=== PATIENT | male | born 2000 | race Caucasian/White ===

== ENCOUNTER 2025-03-10 21:48 | Emergency (ER) | payer OTHER, SELFPAY ==
[2025-03-10 21:50] VITALS: BP 158/85; PULSE 135; RESP 18; TEMP 38; O2SAT 100; BMI 42.9
[2025-03-10 21:56] VITALS: BP 158/85; PULSE 135; RESP 18; TEMP 38; O2SAT 100
--- NOTE | 2025-03-10 22:19 | EX.ED.DYSGE1 ---
HPI History of Present Illness Chief Complaint: Cellulitis Informant: patient Onset/Context/Timing Onset: Today Context: Gradual Onset Timing: Continuous Current Severity: Moderate Maximum Severity: Moderate Narrative Narrative: 24-year-old male slid on Tuesday playing [employer]. He did develop a low-grade fever today of 100.4 and redness from his right mid medial calf up to his medial right thigh. No prior history. No history of clots. No history of DVT or PE. No family history of clotting disorder. No recent travel, surgery or immobilization. Never had any surgery to this leg before. Prior similar symptoms: No Recent Illness/Hospitalization: No PFSH PFSH Medical History no medical history no medical history Home Medications ?Medication ?Instructions ?Recorded ?Last Taken ?Type cephalexin 500 mg capsule 500 mg PO Q6 #40 CAPSULES 03/11/25 Unknown Rx sulfamethoxazole 800 1 tab PO BID 10 days #20 tabs 03/11/25 Unknown Rx mg-trimethoprim 160 mg tablet (Bactrim DS) Allergy/AdvReac Type Severity Reaction Status Date / Time No Known Allergies Allergy Verified 03/10/25 21:50 Family History no significant family his Surgical History no surgical history no surgical history Social History Smoking Status: Never smoker ROS ROS ED ROS Narrative Low-grade fever. Redness right medial leg. Constitutional Constitutional ED: Reports fever(s) Eyes Eyes: Denies blurry vision ENT ENT ED: Denies ear pain Cardiovascular Cardiovascular: Denies chest pain Respiratory/Chest Respiratory/Chest: Denies cough or dyspnea Gastrointestinal Gastrointestinal: Denies abdominal pain Genitourinary Genitourinary ED: Denies dysuria or hematuria Musculoskeletal Musculoskeletal: Denies arthralgias Integumentary Reports rash; Denies abscess or Abrasions Neurologic Neurologic: Denies headache(s) Psychiatric Psychiatric: Denies anxiety Hematologic/Lymphatic Hematologic/Lymphatic: Reports none Allergic/Immunologic Allergic/Immunologic ED: Denies mouth swelling, tongue swelling or urticaria EXAM Physical Exam Narrative Exam Narrative: 24-year-old male vital signs temperature 100.4 heart rate 135. Pulse ox 9% on room air no signs hypoxia. No distress. Ehly members present in room. H EENT exam pupils round react to light. Moist mucous membranes. Neck nontender no JVD. No lymphadenopathy. Lungs clear to auscultation bilaterally. Heart tachycardic 120 no murmur. Chest wall ribs nontender. Abdomen soft nontender. Moving all 4 extremities. Normal range of motion. Normal strength. From his medial right lower leg and calf up to his medial mid thigh there is a red streak that is about 4 inches wide and about 3 feet long. He has got no inguinal lymphadenopathy. There is no crepitance. His right foot is neurovascularly intact with normal DP pulse. Normal dorsi plantarflexion. Normal strength and sensation. There is no sloughing of skin. There is no subcu air. Neurologically is awake alert. Answering questions following commands. His calf otherwise is nontender without cords or edema. Const Vital Signs: 03/10/25 21:50 03/10/25 21:56 03/10/25 21:59 Temperature 100.4 F H 100.4 F H Temperature Source Oral Oral Pulse Rate 135 H 135 H Respiratory Rate 18 18 Respiratory Effort Normal Non-Labored Respiratory Pattern Normal Blood Pressure 158/85 H 158/85 H Blood Pressure Mean 109 109 Pulse Ox 100 100 Oxygen Delivery Method Room Air Room Air 03/10/25 23:00 Temperature 102.0 F H Temperature Source Oral Pulse Rate 130 H Respiratory Rate 18 Respiratory Effort Respiratory Pattern Blood Pressure 147/80 H Blood Pressure Mean 102 Pulse Ox 98 Oxygen Delivery Method Room Air MDM MDM MDM Narrative Medical decision making narrative: 24-year-old male on Tuesday developed pain and redness and low-grade fever to his leg today. Consistent with cellulitis. There is no family history for blood clots or does he have any risk factors for blood clots. Screening labs will be obtained and he will be given a dose of IV Unasyn. Repeat exam at around 11:12 PM. The no change in his cellulitis of his leg. Patient still has a heart rate in the 130s. I discussed with him all his test results. My concern with the advancement of the infection and not having a specific cause. They are considering admission at this time. Repeat exam at 11:55 PM. Had a lengthy discussion with the patient I believe it is his mother and significant other at bedside. He prefers not to stay. I explained to them that given the fever and the extent of the cellulitis of his leg my concern is that by going home he has a significant chance of returning and potentially could be much more ill. He has concerns with his insurance and co-pays. He even spoke to our registration people about potential cost. He is choosing to be discharged to home. He will be written for both Keflex and Bactrim which will be filled here prior to discharge. He was given a dose of IV Unasyn. The exam of his leg is not changed. It does not spread. There is no inguinal lymphadenopathy. There is no necrotic tissue nor any subcu air or crepitance. He knows to return immediately if this is looking worse or he is feeling worse. He was given outpatient follow-up. He did not sign out AMA due to insurance concerns. History & Record Review Discussion w/independent historian: Patient and Family Additional record(s) reviewed:: No prior records Lab Data Attestation: I reviewed the patient's lab results. Lab results narrative: CBC shows elevated white count at 18. H&H of 14 and 42. Platelets 244. 81% neutrophils. D-dimer is negative at 0.45. Chemistries unremarkable gap 9. Normal BUN and creatinine of 13 and 1. Glucose 130. Labs: Laboratory Results - last 24 hr 03/10/25 22:20 WBC 18.0 H RBC 5.07 Hgb 14.9 Hct 42.1 MCV 83.0 MCH 29.4 MCHC 35.4 RDW Std Deviation 37.2 RDW Coeff of Liliana 12.3 Plt Count 244 MPV 9.2 Immature Gran % (Auto) 0.500 Neut % (Auto) 81.2 H Lymph % (Auto) 9.2 L [place] % (Auto) 8.3 Eos % (Auto) 0.5 Baso % (Auto) 0.3 Absolute Neuts (auto) 14.6 H Absolute Lymphs (auto) 1.66 Nucleated RBC % 0 D-Dimer Quant (PE/DVT) 0.45 Sodium 137 Potassium 4.0 Chloride 102 Carbon Dioxide 25.9 Anion Gap 9 BUN 13 Creatinine 1.08 Estim Creat Clear Calc 139.46 Est GFR (MDRD) Non-Af 97 BUN/Creatinine Ratio 12.2 Glucose 130 H Calcium 8.8 Discharge Plan Triage Chief Complaint: Cellulitis ED Provider: Erick Pereyra Dx/Rx/DC Orders Clinical Impression: Cellulitis, Fever Instructions: ED Cellulitis Prescriptions: New cephalexin 500 mg capsule 500 mg PO Q6 Qty: 40 0RF sulfamethoxazole-trimethoprim [Bactrim DS] 800-160 mg tablet 1 tab PO BID 10 Days Qty: 20 0RF Rx Instructions: give 3 days/wk (alternating days) Primary Care Provider: Care Physician,No Primary Referrals: Bony Vela MD [Med [facility] - [facility]] - As soon as possible Care Physician,No Primary [Primary Care Provider, Medical] Activity Restrictions/Additional Instructions: You have a soft tissue infection of the right leg. Watch it closely if it starts getting worse, you are feeling worse and is spreading further up in your leg or you develop swollen lymph nodes in your groin or your leg gets a lot more swollen or the skin starts looking black return. You will be on the antibiotic Keflex 1 pill 4 times a day for 10 days. Also the antibiotic Bactrim 1 pill twice a day for 10 days. Follow-up with another local physician to be reevaluated next several days to ensure this is improving. Motrin and Tylenol for pain. Plenty of fluids and rest. Off work next 2 days. Print Language: Sammarinese Disposition Disposition: Home, Self Care
[2025-03-10 22:29] LABS: Hematocrit 42.1 % (40-54); Hemoglobin 14.9 g/dL (13.0-16.5); Immature Granulocytes Count 0.090 X10^3/uL (0.0-0.0); Mean Corp Hgb Conc 35.4 g/dL (32-36); Mean Corpuscular Volume 83.0 fL (80-94); Mean Platelet Vol. 9.2 fl (6.2-12.0); NRBC Flagged by Analyzer 0 % (0-5); Platelet Count 244 K/mm3 (150-450); RBC Distribution Width CV 12.3 % (11.6-14.6); RBC Distribution Width SD 37.2 fl (35.1-43.9); Red Blood Count 5.07 M/mm3 (4.6-6.2); White Blood Count 18.0 K/mm3 (4.4-11.0)
[2025-03-10] MEDS: Ampicillin/Sulbactam 3 GM in 0.9% Normal Saline (100mL MB+) 100 ML IV (22:45)
[2025-03-10 22:48] LABS: D-Dimer Quantitative (DVT/PE) 0.45 FEU/ug/m (0.27-0.49)
[2025-03-10 22:51] LABS: Anion Gap 9 (5-15); BUN 13 mg/dL (4-19); BUN/Creat Ratio 12.2 RATIO (10-20); Calcium,Total 8.8 mg/dL (7.6-11.0); Carbon Dioxide 25.9 mmol/L (21.0-32.0); Chloride 102 mmol/L (98-108); Estimated Creatinine Clearance 139.46 ml/min (50-250); Glucose 130 mg/dL (70-99); Potassium 4.0 mmol/L (3.3-5.1)
[2025-03-10 23:00] VITALS: BP 147/80; PULSE 130; RESP 18; TEMP 38.9; O2SAT 98
[2025-03-11 00:19] VITALS: BP 147/80; PULSE 125; RESP 18; TEMP 38.2; O2SAT 100
== END 2025-03-11 00:20 | disposition home or self-care (01) ==
PROVIDERS: Emergency Provider Emergency Medicine; Visit Provider Emergency Medicine
DX: L03.115 Cellulitis of right lower limb (principal); R50.9 Fever, unspecified
CPT/HCPCS: 80048; 85025; 85379; 96365; 99284; A4216; J0295

== ENCOUNTER 2025-03-12 16:21 | Inpatient (IN) | payer OTHER, SELFPAY ==
[2025-03-12] VITALS (10 sets, daily range): BP systolic 103–135; BP diastolic 60–76; PULSE 88–112; RESP 14–18; TEMP 37.3–37.6; O2SAT 98–100; BMI 41.8
[2025-03-12] MEDS: Ampicillin/Sulbactam 3 GM in 0.9% Normal Saline (100mL MB+) 100 ML IV (17:23)
--- NOTE | 2025-03-12 17:23 | EX.ED.DYSGE1 ---
HPI History of Present Illness Chief Complaint: Cellulitis Informant: patient Onset/Context/Timing Onset: Days (4) Context: Gradual Onset Timing: Continuous Quality: Burning Location: Right lower leg and right medial thigh Worsened by: Standing Relieved by: Nothing Narrative Narrative: Patient presents with redness and swelling to his right lower extremity that has gotten worse over the past 4 days. Patient was seen here 2 days ago and was given a dose of IV antibiotics at that time. Patient was prescribed oral antibiotics. Patient did not want to stay in the hospital at that time. Patient states the redness and swelling has gotten worse. Patient admits to some subjective fevers. Patient describes his pain as burning. Patient states it is worse with standing. Patient states nothing makes it better. Patient denies any paresthesias or weakness. PFSH PFSH Home Medications ?Medication ?Instructions ?Recorded ?Last Taken ?Type cephalexin 500 mg capsule 500 mg PO Q6 #40 CAPSULES 03/11/25 Unknown Rx sulfamethoxazole 800 1 tab PO BID 10 days #20 tabs 03/11/25 Unknown Rx mg-trimethoprim 160 mg tablet (Bactrim DS) Allergy/AdvReac Type Severity Reaction Status Date / Time No Known Allergies Allergy Verified 03/12/25 16:22 Family History no significant family his Social History Smoking Status: Never smoker ROS ROS ED Constitutional Constitutional ED: Reports fever(s); Denies chills Eyes Eyes: Denies blurry vision or change in vision ENT ENT ED: Denies rhinorrhea or sore throat Cardiovascular Cardiovascular: Denies chest pain or palpitations Respiratory/Chest Respiratory/Chest: Denies cough or dyspnea Gastrointestinal Gastrointestinal: Reports nausea and vomiting Genitourinary Genitourinary ED: Denies dysuria or hematuria Musculoskeletal Musculoskeletal: Denies back pain or neck pain Integumentary Reports rash; Denies abscess Neurologic Neurologic: Reports headache(s); Denies weakness Allergic/Immunologic Allergic/Immunologic ED: Denies mouth swelling or urticaria EXAM Physical Exam Const Vital Signs: 03/12/25 16:21 03/12/25 16:24 03/12/25 17:24 Temperature 99.1 F 99.1 F 99.1 F Temperature Source Oral Oral Oral Pulse Rate 112 H 88 88 Respiratory Rate 16 18 18 Blood Pressure 135/71 H 135/71 H 126/60 H Blood Pressure Mean 92 92 82 Pulse Ox 98 100 100 Oxygen Delivery Method Room Air Room Air Room Air 03/12/25 18:00 03/12/25 18:27 Temperature 99.1 F Temperature Source Oral Pulse Rate 93 100 Respiratory Rate 18 18 Blood Pressure 107/64 108/63 Blood Pressure Mean 78 78 Pulse Ox 99 100 Oxygen Delivery Method Room Air Room Air Positive well nourished and well developed General Appearance ED: well developed and NAD HEENT Reports moist mucous membranes Neck supple and no JVD Extremity Extremity Narrative: There is erythema and warmth over the right lower leg and medial aspect of the right thigh. There is mild induration. There is tenderness. There is no bony crepitus or step-off. Pedal pulses are equal bilaterally. Sensation was intact to light touch bilaterally in the lower extremities. Strength is 5/5 bilaterally in the lower extremities. Neuro oriented x3, CN's II-XII intact bilaterally and no sensory deficits noted Sensorium / Orientation: alert Motor Exam: strength 5/5 throughout Psych mental status grossly normal MDM MDM MDM Narrative Medical decision making narrative: Differential diagnose includes cellulitis, sepsis, dehydration, and electrolyte abnormality. CBC will be obtained to assess for leukocytosis and anemia. Basic metabolic profile will be obtained to assess for electrolyte abnormality renal function. PT with INR and PTT will be obtained to assess for coagulopathy. Serum lactate will be obtained to assess for sepsis. Blood cultures will be obtained to assess for sepsis. History & Record Review Additional record(s) reviewed:: Prior ED visit and Prior labs Lab Data Attestation: I reviewed the patient's lab results. Lab results narrative: CBC was reviewed. There is a leukocytosis of 21.2. PT with INR and PTT were reviewed. Pro time was 15.3 and INR is 1.2. PTT was slightly elevated at 37.7. Basic metabolic profile was reviewed and was within normal limits. Serum lactate was reviewed and was less than 1.0. Labs: Laboratory Results - last 24 hr 03/12/25 17:09 WBC 21.2 H RBC 4.66 Hgb 14.1 Hct 39.3 L MCV 84.3 MCH 30.3 MCHC 35.9 RDW Std Deviation 38.0 RDW Coeff of Liliana 12.4 Plt Count 272 MPV 9.3 Immature Gran % (Auto) 0.700 Neut % (Auto) 84.3 H Lymph % (Auto) 6.9 L [place] % (Auto) 7.5 Eos % (Auto) 0.3 Baso % (Auto) 0.3 Absolute Neuts (auto) 17.9 H Absolute Lymphs (auto) 1.47 Nucleated RBC % 0 PT 15.3 H INR 1.2 APTT 37.7 H Sodium 134 Potassium 3.8 Chloride 99 Carbon Dioxide 24.3 Anion Gap 11 BUN 15 Creatinine 1.05 Estim Creat Clear Calc 141.53 Est GFR (MDRD) Non-Af 100 BUN/Creatinine Ratio 14.0 Glucose 98 Lactic Acid < 1.0 Calcium 8.6 Management Discussion w/another healthcare provider: Hospitalist Treatment and Re-Evaluation :: Patient was given a dose of Unasyn here. Patient was advised of his findings. Given the increasing white blood cell count, I recommended admission to the hospital. Patient is agreeable with this. Case will be discussed with the hospitalist for admission. Hospitalist recommended adding vancomycin. This was ordered. He will see the patient in the emergency department and admit the patient to his service. Patient and family understand and are agreeable with the plan. All questions were answered. Discharge Plan Dx/Rx/DC Orders Clinical Impression: Cellulitis, Leukocytosis, Fever Disposition Disposition: Acute Care [facility]
[2025-03-12 17:36] LABS: Hematocrit 39.3 % (40-54); Hemoglobin 14.1 g/dL (13.0-16.5); Immature Granulocytes Count 0.140 X10^3/uL (0.0-0.0); Mean Corp Hgb Conc 35.9 g/dL (32-36); Mean Corpuscular Volume 84.3 fL (80-94); Mean Platelet Vol. 9.3 fl (6.2-12.0); NRBC Flagged by Analyzer 0 % (0-5); POSITIVE DIFFERENTIAL YES; Platelet Count 272 K/mm3 (150-450); RBC Distribution Width CV 12.4 % (11.6-14.6); RBC Distribution Width SD 38.0 fl (35.1-43.9); Red Blood Count 4.66 M/mm3 (4.6-6.2); White Blood Count 21.2 K/mm3 (4.4-11.0)
[2025-03-12 17:57] LABS: Anion Gap 11 (5-15); BUN 15 mg/dL (4-19); BUN/Creat Ratio 14.0 RATIO (10-20); Calcium,Total 8.6 mg/dL (7.6-11.0); Carbon Dioxide 24.3 mmol/L (21.0-32.0); Chloride 99 mmol/L (98-108); Estimated Creatinine Clearance 141.53 ml/min (50-250); Glucose 98 mg/dL (70-99); Potassium 3.8 mmol/L (3.3-5.1)
[2025-03-12 17:58] LABS: Prothrombin Time (Protime)PT. 15.3 SECONDS (11.7-14.9)
[2025-03-12 17:59] LABS: Partial Thromboplast Time 37.7 Seconds (24.1-36.2)
[2025-03-12 18:01] LABS: Differential Indicated SCAN CRITERIA MET
--- NOTE | 2025-03-12 19:05 | PCM.HP.STD ---
HPI - General General Date of Admission: 03/12/25 Date of Service: 03/12/25 Chief Complaint: Worsening right leg cellulitis with failed outpatient antibiotics HPI Narrative BJ GUZMAN, is a 24 M who presented to [facility] on 03/12/25 with worsening right leg cellulitis and failed outpatient antibiotics. Medical history is significant for only class III obesity. Patient is on no medications at home. He initially presented to the ED here on 03/10 with erythema, swelling and tenderness in the right medial calf up to the right medial thigh area. Was noted then that he had been playing [email or web address] a few days prior and had slid on his right leg. ED physician diagnosed him with cellulitis and given the extent of his cellulitis, it was recommended that he be admitted for IV antibiotics. He notably had a WBC count of 18,000 and a low-grade fever but otherwise was not septic appearing. After a lengthy discussion, patient opted to return home on oral antibiotics with strict instructions to return here if his cellulitis worsen. He took Keflex and Bactrim at home as prescribed but the cellulitis worsened, so he came back in for further evaluation. In the ED today he was noted to have a low-grade fever of 99.7 F and had mild sinus tachycardia with heart rate in the 90s to low 100s, was otherwise normotensive and stable on room air at rest. WBC count 21,000. ED provider noted no areas of fluctuance concerning for abscess or any crepitance so no need for imaging of the leg. Hospitalist was then contacted for admission. I saw the patient at bedside in the ED, mother and girlfriend were present. Patient was mildly flushed appearing but otherwise sitting back comfortably in bed, conversing normally, in no acute distress. He reported mild right lower extremity swelling and discomfort. On exam he had some tenderness to palpation of the erythematous areas but it was not significant. These areas were quite red and warm to the touch. There notably was no significant abrasions noted on his lower leg. He was given doses of IV antibiotics in the ED and will be admitted for further management. PFSH Home Medications ?Medication ?Instructions ?Recorded ?Last Taken ?Type cephalexin 500 mg capsule 500 mg PO Q6H cellulitis 03/12/25 03/12/25 History sulfamethoxazole 800 1 tab PO BID cellulitis 03/12/25 03/12/25 History mg-trimethoprim 160 mg tablet Allergy/AdvReac Type Severity Reaction Status Date / Time No Known Allergies Allergy Verified 03/12/25 16:22 Family History no significant family his Social History Smoking Status: Never smoker ROS Constitutional Constitutional: Reports fatigue; Denies chills, fever(s) or weakness Cardiovascular Cardiovascular: Denies chest pain Respiratory/Chest Respiratory/Chest: Denies shortness of breath at rest Gastrointestinal Gastrointestinal: Denies abdominal pain Musculoskeletal Musculoskeletal: Denies arthralgias, joint pain, joint stiffness, joint swelling or myalgias Neurologic Neurologic: Denies dizziness, focal weakness, headache(s), numbness or tingling Vital Signs Vital Signs Vital Signs: 03/12/25 16:21 03/12/25 16:24 03/12/25 17:24 Temperature 99.1 F 99.1 F 99.1 F Temperature Source Oral Oral Oral Pulse Rate 112 H 88 88 Respiratory Rate 16 18 18 Blood Pressure 135/71 H 135/71 H 126/60 H Blood Pressure Mean 92 92 82 Pulse Ox 98 100 100 Oxygen Delivery Method Room Air Room Air Room Air 03/12/25 18:00 03/12/25 18:27 Temperature 99.1 F Temperature Source Oral Pulse Rate 93 100 Respiratory Rate 18 18 Blood Pressure 107/64 108/63 Blood Pressure Mean 78 78 Pulse Ox 99 100 Oxygen Delivery Method Room Air Room Air Weight Weight: 128.593 kg Body Mass Index (BMI) 41.8 Physical Exam Const alert, oriented x3 and no apparent distress Constitutional Narrative: Young male, class III obesity, mildly fatigued and flushed appearing, otherwise sitting back comfortably in bed, conversing normally, in no acute distress. General Appearance: cooperative and comfortable HEENT normocephalic, head/scalp atraumatic, hearing grossly normal bilaterally, nasal mucous membranes and turbinates normal and moist oral mucous membranes Eyes PERRL, EOMs intact bilaterally and conjunctivae normal Neck full ROM Chest inspection of chest normal Resp normal respiratory effort, normal air movement, no use of accessory muscles and clear to auscultation bilaterally Cardio no murmurs and peripheral pulses 2+ throughout Cardio Narrative: Tachycardic, regular rhythm. GI normal to inspection, nondistended, normoactive bowel sounds, soft to palpation, non-tender and non-distended Back/Spine normal ROM Extremity Extremity Narrative: Right leg with erythema and warmth from the medial calf area up to the medial thigh area, has been marked with pen. Only mild tenderness to the touch noted. No areas of fluctuance or crepitance noted. Neuro moves all extremities and no focal motor deficits Speech: speech normal Motor Exam: strength 5/5 throughout Psych mental status grossly normal Results Lab / Micro Data 03/12/25 17:09 03/12/25 17:09 Labs: Laboratory Results - last 24 hr 03/12/25 17:09: WBC 21.2 H, RBC 4.66, Hgb 14.1, Hct 39.3 L, MCV 84.3, MCH 30.3, MCHC 35.9, RDW Std Deviation 38.0, RDW Coeff of Liliana 12.4, Plt Count 272, MPV 9.3, Immature Gran % (Auto) 0.700, Neut % (Auto) 84.3 H, Lymph % (Auto) 6.9 L, [place] % (Auto) 7.5, Eos % (Auto) 0.3, Baso % (Auto) 0.3, Absolute Neuts (auto) 17.9 H, Absolute Lymphs (auto) 1.47, Nucleated RBC % 0, PT 15.3 H, INR 1.2, APTT 37.7 H, Sodium 134, Potassium 3.8, Chloride 99, Carbon Dioxide 24.3, Anion Gap 11, BUN 15, Creatinine 1.05, Estim Creat Clear Calc 141.53, Est GFR (MDRD) Non-Af 100, BUN/Creatinine Ratio 14.0, Glucose 98, Lactic Acid < 1.0, Calcium 8.6 Assessment & Plan Assessment/Plan (1) Cellulitis: PLAN: Plan Patient is a 24-year-old male who presented to [facility] ED on 03/12/25 with worsening right leg cellulitis with failed outpatient antibiotics. 1. Right leg cellulitis with failed outpatient antibiotics ? Admit under inpatient status to [facility]. Initially presented to the ED on 03/10 with right leg cellulitis from medial lower leg up to medial thigh. Discharged home on Keflex and Bactrim and took as prescribed with no improvement. WBC count 21,000, low-grade fever and mild sinus tachycardia in the ED, otherwise did not meet sepsis criteria. No areas of fluctuance or crepitance noted, no need for lower extremity imaging at this time. Will treat with IV vancomycin and IV Unasyn for now. Monitor daily CBC. 2. Class III obesity ? BMI 41 on admit. Complicates hospital course and care. Encouraged lifestyle modifications. DVT prophylaxis: Lovenox twice daily CODE STATUS: Full code, verified Expected disposition: Home, 2 to 3 days Total clinical time spent by myself addressing the patient's medical issues, reviewing all the data, and collaborating with patient's care team: 61 minutes. Charges/Coding Visit Charges Inpatient E&M: 74077 Init Hosp L2
[2025-03-12] MEDS: Vancomycin HCl 2,000 MG in 0.9% Normal Saline (500mL Bag) 500 ML 250 MG IV (19:35)
[2025-03-12 20:07] LABS: Differential Comment SCANNED
--- NOTE | 2025-03-12 20:25 | PCM.RX.CS ---
Consult Antibiotic Management Pharmacy has been consulted to manage selected antibiotic: Vancomycin Type of Intervention Type of Consult: New start Suspected Infection Suspected Infection: Skin/Soft tissue Prior Doses of Antibiotics Prior Doses of Antibiotics Received/Current Regimen: the patient received vanc 2000mg IV x1 in E.D. starting at 19:35 tonight Labs Labs: Sodium 134 mmol/L (133-145) 03/12/25 17:09 Potassium 3.8 mmol/L (3.3-5.1) 03/12/25 17:09 Chloride 99 mmol/L (98-108) 03/12/25 17:09 Carbon Dioxide 24.3 mmol/L (21.0-32.0) 03/12/25 17:09 Anion Gap 11 (5-15) 03/12/25 17:09 BUN 15 mg/dL (4-19) 03/12/25 17:09 Creatinine 1.05 mg/dL (0.70-1.20) 03/12/25 17:09 Est GFR (MDRD) Non-Af 100 (>60) 03/12/25 17:09 BUN/Creatinine Ratio 14.0 RATIO (10-20) 03/12/25 17:09 Glucose 98 mg/dL (70-99) 03/12/25 17:09 Dosing Weight Weight used for dosin.5 kg Estimated Creatinine Clearance Estimated Creatinine Clearance: 142ml/min Goal Trough Goal Trough: 15-20 mcg/mL Pharmacy Plan for Drug Dosing Pharmacy Plan for Drug Dosing: Starting 8 hours after the ER. dose, continue with 1500mg IV q8h per [facility] dosing protocol. Check a trough before the 4th overall dose tomorrow. Pharmacy Service will continue to monitor and adjust dosing as required. Follow-Up Labs Follow-Up Labs: Trough: Vancomycin Date/Time Labs Ordered Labs to be done on [date and time ordered]: 03/13/25 19:30
[2025-03-13] MEDS: Ampicillin/Sulbactam 3 GM in 0.9% Normal Saline (100mL MB+) 100 ML IV ×4 (00:09→18:09)
[2025-03-13] MEDS: Lactated Ringers 1,000 ML 250 ML IV (01:56)
[2025-03-13 04:00] VITALS: BP 127/73; PULSE 110; RESP 16; TEMP 37.9; O2SAT 98
[2025-03-13 04:10] LABS: Hematocrit 37.8 % (40-54); Hemoglobin 13.4 g/dL (13.0-16.5); Mean Corp Hgb Conc 35.4 g/dL (32-36); Mean Corpuscular Volume 84.6 fL (80-94); Mean Platelet Vol. 9.3 fl (6.2-12.0); Platelet Count 222 K/mm3 (150-450); RBC Distribution Width CV 12.5 % (11.6-14.6); RBC Distribution Width SD 38.5 fl (35.1-43.9); Red Blood Count 4.47 M/mm3 (4.6-6.2); White Blood Count 16.4 K/mm3 (4.4-11.0)
[2025-03-13 04:41] LABS: Anion Gap 13 (5-15); BUN 13 mg/dL (4-19); BUN/Creat Ratio 14.6 RATIO (10-20); Calcium,Total 8.5 mg/dL (7.6-11.0); Carbon Dioxide 20.6 mmol/L (21.0-32.0); Chloride 102 mmol/L (98-108); Estimated Creatinine Clearance 163.24 ml/min (50-250); Glucose 87 mg/dL (70-99); Potassium 4.2 mmol/L (3.3-5.1)
[2025-03-13] MEDS: Vancomycin HCl 1,500 MG in 0.9% Normal Saline (500mL Bag) 500 ML 250 MG IV ×2 (04:54→11:20)
[2025-03-13 06:42] VITALS: O2SAT 97
--- NOTE | 2025-03-13 07:13 | PN.HOSP_ITS ---
Reason for Visit
--- NOTE | 2025-03-13 07:13 | PCM.PN.HOSP ---
Reason for Visit Chief Complaint: Worsening right leg cellulitis with failed outpatient antibiotics Objective Data Objective Data Vital Signs: Vital Signs Temp Pulse Resp BP Pulse Ox O2 Del Method 100.2 F H 110 H 16 127/73 H 98 Room Air 03/13/25 04:00 03/13/25 04:00 03/13/25 04:00 03/13/25 04:00 03/13/25 04:00 03/13/25 04:00 Oxygen Delivery Method Room Air Weight: 128.5 kg Body Mass Index (BMI) 41.8 Intake & Output: Intake and Output for Last 24 Hours 03/11/25 03/12/25 03/13/25 23:59 23:59 23:59 Intake Total 100 / 100 1740 / 1740 Balance 100 / 100 1740 / 1740 Lab / Micro Data 03/13/25 03:49 03/13/25 03:49 Labs: Laboratory Results - last 24 hr 03/12/25 17:09: WBC 21.2 H, RBC 4.66, Hgb 14.1, Hct 39.3 L, MCV 84.3, MCH 30.3, MCHC 35.9, RDW Std Deviation 38.0, RDW Coeff of Liliana 12.4, Plt Count 272, MPV 9.3, Immature Gran % (Auto) 0.700, Neut % (Auto) 84.3 H, Lymph % (Auto) 6.9 L, Heard % (Auto) 7.5, Eos % (Auto) 0.3, Baso % (Auto) 0.3, Absolute Neuts (auto) 17.9 H, Absolute Lymphs (auto) 1.47, Nucleated RBC % 0, Differential Comment SCANNED, Platelet Estimate ADEQUATE, PT 15.3 H, INR 1.2, APTT 37.7 H, Sodium 134, Potassium 3.8, Chloride 99, Carbon Dioxide 24.3, Anion Gap 11, BUN 15, Creatinine 1.05, Estim Creat Clear Calc 141.53, Est GFR (MDRD) Non-Af 100, BUN/Creatinine Ratio 14.0, Glucose 98, Hemoglobin A1c 4.6, Lactic Acid < 1.0, Calcium 8.6 03/13/25 03:49: WBC 16.4 H, RBC 4.47 L, Hgb 13.4, Hct 37.8 L, MCV 84.6, MCH 30.0, MCHC 35.4, RDW Std Deviation 38.5, RDW Coeff of Liliana 12.5, Plt Count 222, MPV 9.3, Sodium 135, Potassium 4.2, Chloride 102, Carbon Dioxide 20.6 L, Anion Gap 13, BUN 13, Creatinine 0.91, Estim Creat Clear Calc 163.24, Est GFR (MDRD) Non-Af 119, BUN/Creatinine Ratio 14.6, Glucose 87, Calcium 8.5 Physical Exam Narrative GENERAL: cooperative HEENT: Atraumatic; normocephalic EYES; Anicteric, Normal Conjunctiva NECK; supple, normal thyroid, RESPIRATORY: Diminished to auscultation CARDIOVASCULAR: Regular S1 S2, GI: soft, normoactive bowel sounds, : No Renal angle tenderness; EXTREMITIES: Swelling involving the right lower extremity with an area of erythema on the medial aspect of the tibia MUSCULOSKELETAL: no muscle wasting NEURO: Awake; no lateralizing signs. SKIN: No Rash PSYCH; Flat affect Assessment & Plan Assessment/Plan (1) Cellulitis: PLAN: Plan Patient is a 24-year-old gentleman admitted with right lower extremity redness and erythema for which she had been treated for cellulitis without improvement admitted to regular nursing floor for subsequent management 1. Right lower extremity cellulitis ? Patient did fail outpatient treatment admitted to a regular nursing floor started on broad-spectrum antibiotic therapy with vancomycin and Unasyn. WBC count on admission was 21K down to 16.4. Will continue with current antibiotic therapy. Also ordered lower extremity duplex of the right right leg to rule out DVT 2. Class III obesity with BMI of 41 ? Complicating care weight loss advised 3. DVT prophylaxis ? On enoxaparin Time spent in the patient's overall evaluation,decision-making process, review of diagnostic data, adjustment of management, discussion with other providers, patient's family (patient's mom) nursing nursing and ancillary staff involved in patient's care documentation,36 . Minutes Charges/Coding Visit Charges Inpatient E&M: 16189 Subs Hosp L2
--- NOTE | 2025-03-13 07:47 | VDLE_ITS ---
Reason For Study VL/Venous Duplex US, Unilateral
[2025-03-13 08:42] VITALS: BP 119/71; PULSE 104; RESP 16; TEMP 36.8; O2SAT 97
[2025-03-13] MEDS: 0.9% Saline Lock 10 ML Syringe IV (11:19)
[2025-03-13 12:58] VITALS: TEMP 37.4
--- NOTE | 2025-03-13 15:28 | CASEMGMT ---
Dx:R leg cellulitis LACE:1 6-Clicks:24 Medical record reviewed and patient evaluated for identification of discharge planning needs. Based on this review, at this time criteria are not present to indicate a need for discharge planning. Will remain available to assist with discharge planning needs as identified or requested.
[2025-03-13 17:00] VITALS: BP 132/77; PULSE 95; RESP 16; TEMP 37.3; O2SAT 100
[2025-03-13 20:30] VITALS: BP 129/84; PULSE 97; RESP 16; TEMP 37.2; O2SAT 99
[2025-03-13 20:50] LABS: Vancomycin, Trough Level 9.6 ug/mL (5.0-15.0)
--- NOTE | 2025-03-13 21:21 | PCM.RX.CS ---
Consult Antibiotic Management Pharmacy has been consulted to manage selected antibiotic: Vancomycin Type of Intervention Type of Consult: Follow-up Suspected Infection Suspected Infection: Skin/Soft tissue Labs Labs: Sodium 135 mmol/L (133-145) 03/13/25 03:49 Potassium 4.2 mmol/L (3.3-5.1) 03/13/25 03:49 Chloride 102 mmol/L (98-108) 03/13/25 03:49 Carbon Dioxide 20.6 mmol/L (21.0-32.0) L 03/13/25 03:49 Anion Gap 13 (5-15) 03/13/25 03:49 BUN 13 mg/dL (4-19) 03/13/25 03:49 Creatinine 0.91 mg/dL (0.70-1.20) 03/13/25 03:49 Est GFR (MDRD) Non-Af 119 (>60) 03/13/25 03:49 BUN/Creatinine Ratio 14.6 RATIO (10-20) 03/13/25 03:49 Glucose 87 mg/dL (70-99) 03/13/25 03:49 Vancomycin Trough 9.6 ug/mL (5.0-15.0) 03/13/25 20:15 Dosing Weight Weight used for dosin.5 kg Estimated Creatinine Clearance Estimated Creatinine Clearance: 163 Goal Trough Goal Trough: 15-20 mcg/mL Pharmacy Plan for Drug Dosing Pharmacy Plan for Drug Dosing: Vancomycin trough level of 9.6, drawn 9hrs post-dose, was below the target range of 15-20. Will increase to 2000mg q8h, and will draw another trough level prior to fourth dose of the new regimen. Pharmacy Service will continue to monitor and adjust dosing as required. Follow-Up Labs Follow-Up Labs: Trough: Vancomycin Date/Time Labs Ordered Labs to be done on [date and time ordered]: 03/14/25 @2100
[2025-03-13] MEDS: Vancomycin HCl 2,000 MG in 0.9% Normal Saline (500mL Bag) 500 ML 250 MG IV (21:54)
[2025-03-14] MEDS: Ampicillin/Sulbactam 3 GM in 0.9% Normal Saline (100mL MB+) 100 ML IV ×4 (00:22→18:33)
[2025-03-14] MEDS: 0.9% Normal Saline (250mL Bag) 250 ML 15 ML IV (00:22)
[2025-03-14] MEDS: Vancomycin HCl 2,000 MG in 0.9% Normal Saline (500mL Bag) 500 ML 250 MG IV ×3 (04:55→22:26)
[2025-03-14] MEDS: 0.9% Saline Lock 10 ML Syringe IV ×2 (04:56→22:26)
[2025-03-14 05:20] LABS: Cholesterol 124 mg/dL (<=200); Low Density Lipoprotein Calc. 83 mg/dL; Magnesium 2.5 mg/dL (1.5-2.2); Triglycerides 100 mg/dL; Very Low Density Lipoprotein 20 mg/dL (5-40); cholesterol:hdl ratio screen 5.54
[2025-03-14 05:21] VITALS: BP 121/72; PULSE 87; RESP 16; TEMP 37.1; O2SAT 98
[2025-03-14 06:40] LABS: Hematocrit 38.2 % (40-54); Hemoglobin 13.1 g/dL (13.0-16.5); Immature Granulocytes Count 0.180 X10^3/uL (0.0-0.0); Mean Corp Hgb Conc 34.3 g/dL (32-36); Mean Corpuscular Volume 85.8 fL (80-94); Mean Platelet Vol. 8.9 fl (6.2-12.0); NRBC Flagged by Analyzer 0 % (0-5); Platelet Count 278 K/mm3 (150-450); RBC Distribution Width CV 12.4 % (11.6-14.6); RBC Distribution Width SD 38.5 fl (35.1-43.9); Red Blood Count 4.45 M/mm3 (4.6-6.2); White Blood Count 13.5 K/mm3 (4.4-11.0)
[2025-03-14 07:38] LABS: Anion Gap 10 (5-15); BUN 12 mg/dL (4-19); BUN/Creat Ratio 14.0 RATIO (10-20); Calcium,Total 8.4 mg/dL (7.6-11.0); Carbon Dioxide 23.5 mmol/L (21.0-32.0); Chloride 106 mmol/L (98-108); Estimated Creatinine Clearance 174.76 ml/min (50-250); Glucose 91 mg/dL (70-99); Potassium 4.0 mmol/L (3.3-5.1)
[2025-03-14 08:57] VITALS: BP 119/78; PULSE 90; RESP 16; TEMP 36.9; O2SAT 100
--- NOTE | 2025-03-14 09:20 | PN.HOSP_ITS ---
Reason for Visit
--- NOTE | 2025-03-14 09:20 | PCM.PN.HOSP ---
Reason for Visit Chief Complaint: Worsening right leg cellulitis with failed outpatient antibiotics Subjective Subjective Patient seen area of erythema involving the right lower extremity decreasing in size. WBC count however still remains elevated at 13.5. Temperature maximum over the past 24 hours since 99.5. Patient requested to stay for an additional day. Objective Data Objective Data Vital Signs: Vital Signs Temp Pulse Resp BP Pulse Ox O2 Del Method 98.5 F 90 16 119/78 100 Room Air 03/14/25 08:57 03/14/25 08:57 03/14/25 08:57 03/14/25 08:57 03/14/25 08:57 03/14/25 08:57 Oxygen Delivery Method Room Air Weight: 128.5 kg Body Mass Index (BMI) 41.8 Intake & Output: Intake and Output for Last 24 Hours 03/12/25 03/13/25 03/14/25 23:59 23:59 23:59 Intake Total 100 / 100 3000 / 3000 1280 / 1280 Balance 100 / 100 3000 / 3000 1280 / 1280 Lab / Micro Data 03/14/25 06:30 03/14/25 06:30 Labs: Laboratory Results - last 24 hr 03/13/25 20:15: Vancomycin Trough 9.6 03/14/25 03:42: Sodium Cancelled, Potassium Cancelled, Chloride Cancelled, Carbon Dioxide Cancelled, Anion Gap Cancelled, BUN Cancelled, Creatinine Cancelled, Est GFR (MDRD) Non-Af Cancelled, BUN/Creatinine Ratio Cancelled, Glucose Cancelled, Calcium Cancelled, Phosphorus 3.8, Magnesium 2.5 H, Triglycerides 100, Cholesterol 124, LDL Cholesterol, Calc 83, VLDL Cholesterol 20, HDL Cholesterol 22 L, Cholesterol/HDL Ratio 5.54 03/14/25 06:30: WBC 13.5 H, RBC 4.45 L, Hgb 13.1, Hct 38.2 L, MCV 85.8, MCH 29.4, MCHC 34.3, RDW Std Deviation 38.5, RDW Coeff of Liliana 12.4, Plt Count 278, MPV 8.9, Immature Gran % (Auto) 1.300 H, Neut % (Auto) 74.7 H, Lymph % (Auto) 14.8 L, [place] % (Auto) 7.0, Eos % (Auto) 1.6, Baso % (Auto) 0.6, Absolute Neuts (auto) 10.1 H, Absolute Lymphs (auto) 2.00, Nucleated RBC % 0, Sodium 139, Potassium 4.0, Chloride 106, Carbon Dioxide 23.5, Anion Gap 10, BUN 12, Creatinine 0.85, Estim Creat Clear Calc 174.76, Est GFR (MDRD) Non-Af 123, BUN/Creatinine Ratio 14.0, Glucose 91, Calcium 8.4 Radiography Diagnostic Testing: Radiology Impression Venous Doppler Study 03/13/25 07:47 Interpretation Summary Deep veins of the right lower extremity are patent and compressible segmentally. There is no evidence of right lower extremity deep vein thrombosis. Valvular competence appears intact within the proximal deep venous system on the right . The right great saphenous vein appears patent and compressible segmentally. An enlarged lymph node is noted in the right groin, measuring 3.58 cm x 1.46 cm. Ordering Physician: James Farah Referring Physician: N/A Performed By: Placido Martin RVT Physical Exam Narrative GENERAL: cooperative HEENT: Atraumatic; normocephalic EYES; Anicteric, Normal Conjunctiva NECK; supple, normal thyroid, RESPIRATORY: Diminished to auscultation CARDIOVASCULAR: Regular S1 S2, GI: soft, normoactive bowel sounds, : No Renal angle tenderness; EXTREMITIES: Swelling involving the right lower extremity with an area of erythema on the medial aspect of the tibia MUSCULOSKELETAL: no muscle wasting NEURO: Awake; no lateralizing signs. SKIN: No Rash PSYCH; Flat affect Assessment & Plan Assessment/Plan (1) Cellulitis: PLAN: Plan Patient is a 24-year-old gentleman admitted with right lower extremity redness and erythema for which she had been treated for cellulitis without improvement admitted to regular nursing floor for subsequent management 1. Right lower extremity cellulitis ? Patient did fail outpatient treatment admitted to a regular nursing floor started on broad-spectrum antibiotic therapy with vancomycin and Unasyn. WBC count on admission was 21K down to 16.4. Will continue with current antibiotic therapy. Also ordered lower extremity duplex of the right right leg to rule out DVT ? 03/14/2025; venous duplex was negative for DVT. Patient seen area of erythema involving the right lower extremity decreasing in size. WBC count however still remains elevated at 13.5. Temperature maximum over the past 24 hours since 99.5. Patient requested to stay for an additional day. 2. Class III obesity with BMI of 41 ? Complicating care weight loss advised 3. DVT prophylaxis ? On enoxaparin Time spent in the patient's overall evaluation,decision-making process, review of diagnostic data, adjustment of management, discussion with other providers, patient's family (patient's mom) nursing nursing and ancillary staff involved in patient's care documentation, 35 . Minutes Charges/Coding Visit Charges Inpatient E&M: 27081 Subs Hosp L2
[2025-03-14 14:57] VITALS: BP 118/69; PULSE 90; RESP 16; TEMP 36.9; O2SAT 100
[2025-03-14 15:40] VITALS: O2SAT 100
[2025-03-14 21:46] LABS: Vancomycin, Trough Level 15.9 ug/mL (5.0-15.0)
--- NOTE | 2025-03-14 22:31 | PCM.RX.CS ---
Consult Antibiotic Management Pharmacy has been consulted to manage selected antibiotic: Vancomycin Type of Intervention Type of Consult: Follow-up Suspected Infection Suspected Infection: Skin/Soft tissue Labs Labs: Sodium 139 mmol/L (133-145) 03/14/25 06:30 Potassium 4.0 mmol/L (3.3-5.1) 03/14/25 06:30 Chloride 106 mmol/L (98-108) 03/14/25 06:30 Carbon Dioxide 23.5 mmol/L (21.0-32.0) 03/14/25 06:30 Anion Gap 10 (5-15) 03/14/25 06:30 BUN 12 mg/dL (4-19) 03/14/25 06:30 Creatinine 0.85 mg/dL (0.70-1.20) 03/14/25 06:30 Est GFR (MDRD) Non-Af 123 (>60) 03/14/25 06:30 BUN/Creatinine Ratio 14.0 RATIO (10-20) 03/14/25 06:30 Glucose 91 mg/dL (70-99) 03/14/25 06:30 Vancomycin Trough 15.9 ug/mL (5.0-15.0) H 03/14/25 21:00 Dosing Weight Weight used for dosin kg Estimated Creatinine Clearance Estimated Creatinine Clearance: 175 Goal Trough Goal Trough: 15-20 mcg/mL Pharmacy Plan for Drug Dosing Pharmacy Plan for Drug Dosing: Vancomycin trough level of 15.9, drawn 7hrs post-dose, was within the target range of 15-20. Will continue dosing at 2000mg q8h, and will draw another trough level in two days. Pharmacy Service will continue to monitor and adjust dosing as required. Follow-Up Labs Follow-Up Labs: Trough: Vancomycin Date/Time Labs Ordered Labs to be done on [date and time ordered]: 03/16/25 @2100
[2025-03-14 22:44] VITALS: BP 122/83; PULSE 89; RESP 16; TEMP 37.1; O2SAT 98
[2025-03-15] MEDS: Ampicillin/Sulbactam 3 GM in 0.9% Normal Saline (100mL MB+) 100 ML IV ×5 (00:58→23:49)
[2025-03-15] MEDS: 0.9% Normal Saline (250mL Bag) 250 ML 15 ML IV (01:52)
[2025-03-15] MEDS: 0.9% Saline Lock 10 ML Syringe IV (01:53)
[2025-03-15] MEDS: Vancomycin HCl 2,000 MG in 0.9% Normal Saline (500mL Bag) 500 ML 250 MG IV ×3 (04:57→20:40)
[2025-03-15 05:08] VITALS: BP 121/78; PULSE 67; RESP 16; TEMP 36.3; O2SAT 99
[2025-03-15 06:49] LABS: Hematocrit 38.0 % (40-54); Hemoglobin 13.3 g/dL (13.0-16.5); Immature Granulocytes Count 0.370 X10^3/uL (0.0-0.0); Mean Corp Hgb Conc 35.0 g/dL (32-36); Mean Corpuscular Volume 85.6 fL (80-94); Mean Platelet Vol. 9.1 fl (6.2-12.0); NRBC Flagged by Analyzer 0 % (0-5); Platelet Count 304 K/mm3 (150-450); RBC Distribution Width CV 12.2 % (11.6-14.6); RBC Distribution Width SD 38.2 fl (35.1-43.9); Red Blood Count 4.44 M/mm3 (4.6-6.2); White Blood Count 12.6 K/mm3 (4.4-11.0)
[2025-03-15 07:17] LABS: Anion Gap 11 (5-15); BUN 14 mg/dL (4-19); BUN/Creat Ratio 16.9 RATIO (10-20); Calcium,Total 8.4 mg/dL (7.6-11.0); Carbon Dioxide 22.5 mmol/L (21.0-32.0); Chloride 106 mmol/L (98-108); Estimated Creatinine Clearance 176.84 ml/min (50-250); Glucose 81 mg/dL (70-99); Potassium 4.1 mmol/L (3.3-5.1)
[2025-03-15 07:35] VITALS: BP 107/71; PULSE 70; RESP 16; TEMP 36.8; O2SAT 100
[2025-03-15 09:00] VITALS: O2SAT 98
--- NOTE | 2025-03-15 11:43 | PCM.PROGNOTE ---
Subjective Subjective Patient seen and examined with his nurse by his bedside. He had no active complaints. He said the redness and warmth of his right lower extremity is improving. The right leg is still swollen though he says this is improved. Review of systems otherwise negative. He has been hemodynamically stable. Objective Data Objective Data Vital Signs: Vital Signs Temp Pulse Resp BP Pulse Ox O2 Del Method 98.2 F 70 16 107/71 98 Room Air 03/15/25 07:35 03/15/25 07:35 03/15/25 07:35 03/15/25 07:35 03/15/25 09:00 03/15/25 09:00 Oxygen Delivery Method Room Air Weight: 283 lb 4.704 oz Body Mass Index (BMI) 41.8 Intake & Output: Intake and Output for Last 24 Hours 03/13/25 03/14/25 03/15/25 23:59 23:59 23:59 Intake Total 3000 / 3000 2149.5 / 2149.5 1330.25 / 1330.25 Balance 3000 / 3000 2149.5 / 2149.5 1330.25 / 1330.25 Lab / Micro Data 03/15/25 06:02 03/15/25 06:02 Labs: Laboratory Results - last 24 hr 03/14/25 21:00: Vancomycin Trough 15.9 H 03/15/25 06:02: WBC 12.6 H, RBC 4.44 L, Hgb 13.3, Hct 38.0 L, MCV 85.6, MCH 30.0, MCHC 35.0, RDW Std Deviation 38.2, RDW Coeff of Liliana 12.2, Plt Count 304, MPV 9.1, Immature Gran % (Auto) 2.900 H, Neut % (Auto) 70.9 H, Lymph % (Auto) 16.2 L, Chambers % (Auto) 6.4, Eos % (Auto) 2.7, Baso % (Auto) 0.9, Absolute Neuts (auto) 8.9 H, Absolute Lymphs (auto) 2.04, Nucleated RBC % 0, Sodium 139, Potassium 4.1, Chloride 106, Carbon Dioxide 22.5, Anion Gap 11, BUN 14, Creatinine 0.84, Estim Creat Clear Calc 176.84, Est GFR (MDRD) Non-Af 123, BUN/Creatinine Ratio 16.9, Glucose 81, Calcium 8.4 Micro: Microbiology 03/12/25 17:14 Blood Culture (Wb) - Anticubital Left Blood Culture - Preliminary No growth in 48 hours. 03/12/25 17:09 Blood Culture (Wb) - Anticubital Right Blood Culture - Preliminary No growth in 48 hours. Physical Exam Const alert and oriented x3 Constitutional Narrative: class III obesity General Appearance: cooperative HEENT normocephalic, head/scalp atraumatic, moist oral mucous membranes and oropharynx normal Eyes EOMs intact bilaterally Neck supple Lymph Lymphatic: no lymphedema noted Resp normal respiratory effort, normal air movement and clear to auscultation bilaterally Cardio regular rate, regular rhythm, S1 normal heart sound, S2 normal heart sound and no murmurs GI normal to inspection, nondistended, normoactive bowel sounds, soft to palpation, non-tender and non-distended Extremity Extremity Narrative: Right lower extremity moderately edematous. Has minimal differential warmth. Has notable swelling and redness over the right upper carrington. Skin Skin Narrative: as under extremities Neuro no focal motor deficits Motor Exam: strength 5/5 throughout Psych thought process normal, cooperative and affect normal Appearance: appropriate Assessment & Plan Assessment/Plan (1) Cellulitis: PLAN: Plan #RLE cellulitis improving, but still has some redness and mild swelling over the upper right carrington on IV vancomycin and unasyn continue IV antibiotics for today wbc down to 12.6 today duplex of the LLE was negative for any evidence of DVT #Class III obesity: BMI is 41. Complicates acute care, expected recovery and prognosis. DVT prophylaxis: heparin Disposition: anticipate dc tomorrow Charges/Coding Visit Charges Inpatient E&M: 36259 Subs Hosp L2
[2025-03-15 13:04] VITALS: BP 132/76; PULSE 79; RESP 16; TEMP 36.6; O2SAT 99
[2025-03-15 18:26] VITALS: BP 111/59; PULSE 84; RESP 15; TEMP 37.2; O2SAT 100
[2025-03-15 20:40] VITALS: BP 122/75; PULSE 87; RESP 16; TEMP 36.6; O2SAT 100
[2025-03-16 02:15] VITALS: BP 103/68; PULSE 68; RESP 16; TEMP 36.6; O2SAT 98
[2025-03-16] MEDS: Vancomycin HCl 2,000 MG in 0.9% Normal Saline (500mL Bag) 500 ML 250 MG IV (04:55)
[2025-03-16 06:43] LABS: Hematocrit 40.0 % (40-54); Hemoglobin 13.8 g/dL (13.0-16.5); Immature Granulocytes Count 0.500 X10^3/uL (0.0-0.0); Mean Corp Hgb Conc 34.5 g/dL (32-36); Mean Corpuscular Volume 84.7 fL (80-94); Mean Platelet Vol. 9.0 fl (6.2-12.0); NRBC Flagged by Analyzer 0 % (0-5); Platelet Count 332 K/mm3 (150-450); RBC Distribution Width CV 12.1 % (11.6-14.6); RBC Distribution Width SD 37.0 fl (35.1-43.9); Red Blood Count 4.72 M/mm3 (4.6-6.2); White Blood Count 13.1 K/mm3 (4.4-11.0)
[2025-03-16] MEDS: Ampicillin/Sulbactam 3 GM in 0.9% Normal Saline (100mL MB+) 100 ML IV ×2 (07:23→12:13)
[2025-03-16 07:35] LABS: Anion Gap 9 (5-15); BUN 16 mg/dL (4-19); BUN/Creat Ratio 17.2 RATIO (10-20); Calcium,Total 8.7 mg/dL (7.6-11.0); Carbon Dioxide 25.3 mmol/L (21.0-32.0); Chloride 104 mmol/L (98-108); Estimated Creatinine Clearance 161.47 ml/min (50-250); Glucose 85 mg/dL (70-99); Potassium 4.2 mmol/L (3.3-5.1)
[2025-03-16 10:01] VITALS: BP 122/74; PULSE 82; RESP 16; TEMP 36.4; O2SAT 100
--- NOTE | 2025-03-16 10:10 | CT_ITS ---
PROCEDURE: CT/Extremity Lower WITH Contrast
[2025-03-16] MEDS: 0.9% Saline Lock 10 ML Syringe IV (12:13)
--- NOTE | 2025-03-16 13:38 | DCINST_ITS ---
Discharge Instructions
--- NOTE | 2025-03-16 13:38 | PCM.DC ---
Discharge Instructions DC O2, CPAP, BIPAP needs Home O2 Discharge instructions: No Dressing / Incision Discharge Activity: Return to Normal Activity Weight Bearing Status: Weight bearing as tolerated Dressing / Incision Call your doctor if you observe: Fever of 101 or Higher, Shortness of breath, Dizziness, Swelling in the ankles and Uncontrolled pain Follow Up Care Test Results: Test results from this visit will be discussed in further detail at your follow-up appointment, if applicable. Discharge Plan Admission Admit Date/Time: 03/12/25 19:51 Primary Reason for Your Visit: RLE cellulitis Attending Provider: Hyacinth Keys Primary Care Provider: Care Physician,No Primary Consulting Providers: Sergio Gee; James Farah Instructions Patient Instructions: Cellulitis Additional Instructions / Restrictions: see PCP within one week for repeat CBC to monitor wbc count for continued downwards trend Discharge Orders/Prescriptions Prescriptions: New doxycycline hyclate 100 mg tablet 100 mg PO BID Qty: 20 0RF Discontinued cephalexin 500 mg capsule 500 mg PO Q6H sulfamethoxazole-trimethoprim 800-160 mg tablet 1 tab PO BID Referrals / Follow Up: Tawanda Neri MD [Med Staff - Active Staff, Internal Medicine] - Within 1 Month Referral Note: see to establish PCP care Care Physician,No Primary [Primary Care Provider, Medical] Disposition Disposition (needs filled in before D/C Order can be placed): Home, Self Care
--- NOTE | 2025-03-16 13:39 | PCM.DC.SUM ---
Providers Date of Admission: 03/12/25 Date of Discharge: 03/16/25 Primary Care Physician: No Primary Care Phys Reason For Visit: RIGHT LEG CELLULITIS Diagnosis Discharge Diagnosis (1) Cellulitis: Status: Acute Code(s): L03.90 - Cellulitis, unspecified Plan #RLE cellulitis improving, but still has some redness and mild swelling over the upper right carrington on IV vancomycin and unasyn continue IV antibiotics for today wbc down to 12.6 today duplex of the LLE was negative for any evidence of DVT #Class III obesity: BMI is 41. Complicates acute care, expected recovery and prognosis. DVT prophylaxis: heparin Disposition: anticipate dc tomorrow Medications at Discharge Home Medications doxycycline hyclate 100 mg tablet 100 mg PO BID #20 tabs 03/16/25 Hospital Course Operations None Procedures None Summary of Care Provided Minutes Spent on Discharge: 45 Hospital Course: Patient is a 24-year-old male with past medical history as outlined was admitted to the ED on 03/12/2025 with a complaint of worsening right lower extremity cellulitis with failed outpatient antibiotics. She had been seen in the ED on 03/10/2025 with redness and swelling and tenderness of the right medial calf up to the right mid thigh area. He had them playing Frisbee a few days prior and had sudden onset right leg. He had been diagnosed with cellulitis at that time and he had a white cell count of 18,000 and a low-grade fever. ED doctor recommended that he be admitted for IV antibiotics. However patient opted to go home on oral antibiotics. He took Keflex and Bactrim at home but his symptoms worsened so he came back to the ED. In the ED he had a low-grade fever and sinus tachycardia with WBC of 21,000. There was no evidence of fluctuance concerning for abscess or crepitus. He was admitted to be managed for cellulitis of the right lower extremity. He was started on IV Unasyn. He had duplex of the right lower extremity which was negative for any evidence of DVT. His white cell count gradually trended down to 12. The redness and swelling also improved. On day of discharge his white cell count had gone up slightly from 12.5 the day before to 13.1 on 03/16/2025. Hospitalist initially offered CT of the right lower extremity versus ultrasound to rule out an abscess. Upon further discussion with hospitalist determined that CT would be the fastest modality to detect an abscess because the ultrasound was logging tractor operator dependent and they would have to call the tech in and the read might also be linked delayed. Patient had to call his mom on the phone to see if she agreed with him getting the CT. Patient was initially reluctant to get the CT. His mother was in agreement with getting the CT to rule out an abscess. Patient deferred because he said the CT was too expensive. Mother reminded him that he did have insurance. This hospitalist told patient that he would be okay if he wanted to stay in the hospital for at least another day for further IV antibiotics. Patient adamantly stated that he wanted to be discharged home and did not want to the CT. After further discussion he asked his mother what he should do. His mother told him that he should have the CT. Patient had the CT of the right lower extremity which showed no evidence of abscess and showed subcutaneous soft tissue edema surrounding the calf consistent with cellulitis. Patient was therefore discharged home on p.o. doxycycline 100 mg twice daily for 7-day course. He is to follow-up with his primary care doctor within a week for follow-up CBC to make sure that his WBC is trending downwards. Patient seen and examined prior to discharge. He had no active complaints. He had an uneventful night. Review of systems otherwise negative. Labs and vitals reviewed. Home medication reviewed and reconciled. Physical Exam Const alert, oriented x3 and no apparent distress Constitutional Narrative: class III obesity General Appearance: cooperative and comfortable HEENT normocephalic, head/scalp atraumatic, hearing grossly normal bilaterally and moist oral mucous membranes Eyes EOMs intact bilaterally and conjunctivae normal Neck full ROM and supple Lymph Lymphatic: no lymphedema noted Chest inspection of chest normal Resp normal respiratory effort, normal air movement, no use of accessory muscles and clear to auscultation bilaterally Cardio regular rate, regular rhythm, S1 normal heart sound, S2 normal heart sound, no murmurs and peripheral pulses 2+ throughout GI normal to inspection, nondistended, normoactive bowel sounds, soft to palpation, non-tender and non-distended Back/Spine normal ROM Extremity Extremity Narrative: Right lower extremity edema has markedly improved. Has minimal differential warmth. Has notable swelling and redness over the right upper carrington. Skin Skin Narrative: as under extremities Neuro moves all extremities and no focal motor deficits Speech: speech normal Motor Exam: strength 5/5 throughout Psych mental status grossly normal, thought process normal, cooperative and affect normal Appearance: appropriate Weight / BMI Weight Weight: 283 lb 4.704 oz Body Mass Index (BMI) 41.8 ABG / Lab / Microbiology Data 03/16/25 05:58 03/16/25 05:58 Laboratory: Laboratory Results - last 24 hr 03/16/25 05:58: WBC 13.1 H, RBC 4.72, Hgb 13.8, Hct 40.0, MCV 84.7, MCH 29.2, MCHC 34.5, RDW Std Deviation 37.0, RDW Coeff of Liliana 12.1, Plt Count 332, MPV 9.0, Immature Gran % (Auto) 3.800 H, Neut % (Auto) 71.8 H, Lymph % (Auto) 15.3 L, [place] % (Auto) 5.6, Eos % (Auto) 2.7, Baso % (Auto) 0.8, Absolute Neuts (auto) 9.4 H, Absolute Lymphs (auto) 2.00, Nucleated RBC % 0, Sodium 138, Potassium 4.2, Chloride 104, Carbon Dioxide 25.3, Anion Gap 9, BUN 16, Creatinine 0.92, Estim Creat Clear Calc 161.47, Est GFR (MDRD) Non-Af 117, BUN/Creatinine Ratio 17.2, Glucose 85, Calcium 8.7 Microbiology: Microbiology 03/12/25 17:14 Blood Culture (Wb) - Anticubital Left Blood Culture - Preliminary No growth in 48 hours. 03/12/25 17:09 Blood Culture (Wb) - Anticubital Right Blood Culture - Preliminary No growth in 48 hours. Radiography Diagnostic Testing: Radiology Impression Lower Extremity CT 03/16/25 10:10 IMPRESSION: Subcutaneous soft tissue edema surrounding the calf consistent with cellulitis. No fluid collection to suggest an abscess. No acute osseous abnormalities. Reading Location: [facility] D/C Instructions Discharge Activity: Return to Normal Activity Weight Bearing Status: Weight bearing as tolerated Call your doctor if you observe: Fever of 101 or Higher, Shortness of breath, Dizziness, Swelling in the ankles and Uncontrolled pain DC O2, CPAP, BIPAP Needs Home O2 Discharge instructions: No DC home with Oxygen: No Meaningful Use Info Meaningful Use Meaningful Use Diagnoses (Choose all that apply): None applicable Discharge Plan Admission Admit Date/Time: 03/12/25 19:51 Primary Reason for Your Visit: RLE cellulitis Attending Provider: Hyacinth Keys Primary Care Provider: Care Physician,No Primary Consulting Providers: Sergio Gee; James Farah Instructions Patient Instructions: Cellulitis Additional Instructions / Restrictions: see PCP within one week for repeat CBC to monitor wbc count for continued downwards trend Discharge Orders/Prescriptions Prescriptions: New doxycycline hyclate 100 mg tablet 100 mg PO BID Qty: 20 0RF Discontinued cephalexin 500 mg capsule 500 mg PO Q6H sulfamethoxazole-trimethoprim 800-160 mg tablet 1 tab PO BID Referrals / Follow Up: Tawanda Neri MD [Med Staff - Active Staff, Internal Medicine] - Within 1 Month Referral Note: see to establish PCP care Care Physician,No Primary [Primary Care Provider, Medical] Disposition Disposition (needs filled in before D/C Order can be placed): Home, Self Care Charges/Coding Visit Charges Inpatient E&M: 74040 Disch Hosp >30min
== END 2025-03-16 14:10 | disposition home or self-care (01) | DRG 603 ==
LOC: ED 19:13 → MS3 19:57
PROVIDERS: Internal Medicine; Admitting Provider Hospitalist; Emergency Provider Emergency Medicine; Visit Provider Student in an Organized Health Care Education/Training Program
DX: L03.115 Cellulitis of right lower limb (principal); Z68.41 Body mass index [BMI] 40.0-44.9, adult; E66.813 Obesity, class 3
CPT/HCPCS: 36415; 73701; 80048; 80061; 80202; 83036; 83605; 83735; 84100; 85025; 85027; 85610; 85730; 87040; 93971; 99284; Q9967; A4216; J0295